=== PATIENT | male | born 1960 | race Two or more races ===

== ENCOUNTER 2021-01-01 21:02 | Emergency (ER) | payer OTHER ==
[~2021-01-01] VITALS: Ht 175.3 cm; Wt 118.8 kg
[~2021-01-01 21:02] MED LIST: ASA-EC81 MG PO; HYZAAR 100-251 UDTAB; NORVASC5 MG; PLAVIX75 MG PO
[2021-01-01] MEDS ORDERED: AMIODARONE HCL100 MG PO (21:35)
[2021-01-01] MEDS ORDERED: LOSARTAN POTASS50 MG PO (21:35)
[2021-01-01] MEDS ORDERED: FUROSEMIDE20 MG PO (21:36)
== END 2021-01-02 01:06 | disposition home or self-care (01) ==
LOC: ER 21:02
DX: N20.0 Calculus of kidney (principal)

== ENCOUNTER → 2021-01-26 | Outpatient (CLI) | payer OTHER ==
[~2021-01-26] MED LIST changes: +AMIODARONE HCL100 MG PO; +CARVEDILOL6.25 MG; +ELIQUIS5 MG; +FUROSEMIDE20 MG PO; +LASIX20 MG PO; +LASIX40 MG; +LOSARTAN POTASS50 MG PO
== END | disposition home or self-care (01) ==
LOC: RAD 15:09
PROVIDERS: ATTEND Urology
DX: I11.9 Hypertensive heart disease without heart failure (principal)

== ENCOUNTER 2021-01-27 07:41 | Outpatient (CLI) | payer OTHER ==
[~2021-01-27 07:41] MED LIST changes: -CARVEDILOL6.25 MG; -ELIQUIS5 MG; -LASIX20 MG PO; -LASIX40 MG
== END 2021-01-27 07:49 | disposition home or self-care (01) ==
LOC: TOM 07:41
PROVIDERS: ATTEND Urology
DX: C64.1 Malignant neoplasm of right kidney, except renal pelvis (principal)

== ENCOUNTER 2021-02-08 08:45 | Inpatient (IN) | payer OTHER ==
[~2021-02-08] VITALS: Ht 172.7 cm; Wt 114.3 kg
== END 2021-02-17 08:12 | disposition home or self-care (01) | DRG 658 ==
LOC: SURG 02-15 05:20 → O/R 02-15 05:20 → SURH 02-15 07:00 → SURG 02-15 14:05
PROVIDERS: ADMIT Urology; ATTEND Urology
PROC: 0TB64ZZ Excision of Right Ureter, Percutaneous Endoscopic Approach (ICD-10-PCS; 2021-02-15)
PROC: 07TC4ZZ Resection of Pelvis Lymphatic, Percutaneous Endoscopic Approach (ICD-10-PCS; 2021-02-15)
PROC: 0TT04ZZ Resection of Right Kidney, Percutaneous Endoscopic Approach (ICD-10-PCS; principal; 2021-02-15 07:00)
DX: C64.1 Malignant neoplasm of right kidney, except renal pelvis (principal); N28.89 Other specified disorders of kidney and ureter

== ENCOUNTER 2021-03-30 02:50 | Emergency (ER) | payer OTHER ==
[~2021-03-30] VITALS: Ht 172.7 cm; Wt 113.4 kg
[2021-03-30] MEDS ORDERED: LASIX20 MG PO (03:22)
== END 2021-03-30 18:07 | disposition home or self-care (01) ==
LOC: ER 02:50 → CPU-OBS 02:57 → ER 18:07
DX: I48.20 Chronic atrial fibrillation, unspecified (principal)
CPT/HCPCS: 93005; 93306; G0379; G0378

== ENCOUNTER 2021-04-03 06:50 | Emergency (ER) | payer OTHER ==
[~2021-04-03] VITALS: Ht 175.3 cm; Wt 109.8 kg
[~2021-04-03 06:50] MED LIST changes: +LASIX20 MG PO
[2021-04-03] MEDS ORDERED: LASIX40 MG (07:01)
[2021-04-03] MEDS ORDERED: ELIQUIS5 MG (07:02)
[2021-04-03] MEDS ORDERED: CARVEDILOL6.25 MG (07:02)
[2021-04-03] MEDS ORDERED: AMIODARONE HCL100 MG PO (07:03)
== END 2021-04-04 12:28 | disposition home or self-care (01) ==
LOC: ER 06:50
DX: I50.9 Heart failure, unspecified (principal); I48.91 Unspecified atrial fibrillation

== ENCOUNTER 2021-05-11 03:35 | Emergency (ER) | payer OTHER ==
[~2021-05-11] VITALS: Ht 172.7 cm; Wt 110.7 kg
[~2021-05-11 03:35] MED LIST changes: +CARVEDILOL6.25 MG; +ELIQUIS5 MG; +LASIX40 MG
== END 2021-05-11 17:21 | disposition home or self-care (01) ==
LOC: ER 03:35 → CPU-OBS 03:36 → ER 03:36
DX: I11.0 Hypertensive heart disease with heart failure (principal); I24.9 Acute ischemic heart disease, unspecified; I50.21 Acute systolic (congestive) heart failure; I48.20 Chronic atrial fibrillation, unspecified; M54.5 Low back pain; B37.9 Candidiasis, unspecified; R07.89 Other chest pain; R10.13 Epigastric pain; N20.0 Calculus of kidney; N28.89 Other specified disorders of kidney and ureter; E66.8 Other obesity
CPT/HCPCS: 93005; 82805; 36600; G0378; G0379

== ENCOUNTER 2021-09-15 08:03 | Outpatient (CLI) | payer OTHER | END 2021-09-15 08:04 | disposition home or self-care (01) | LOC: NUCLEAR 08:03 | PROVIDERS: ATTEND Internal Medicine | DX: I50.22 Chronic systolic (congestive) heart failure (principal) ==

== ENCOUNTER 2021-09-22 08:32 | Outpatient (CLI) | payer OTHER | END 2021-09-22 10:20 | disposition home or self-care (01) | LOC: TOM 08:32 | PROVIDERS: ATTEND Urology | DX: C64.1 Malignant neoplasm of right kidney, except renal pelvis (principal) ==

== ENCOUNTER 2021-12-22 01:53 | Emergency (ER) | payer OTHER ==
[~2021-12-22] VITALS: Ht 175.3 cm; Wt 112.0 kg
[2021-12-22] MEDS ORDERED: LANOXIN125 MCG (02:08)
[2021-12-22] MEDS ORDERED: PEPCID40 MG PO (07:59)
[2021-12-22] MEDS ORDERED: LEVSIN/SL0.125 MG SL (07:59)
== END 2021-12-22 08:10 ==
LOC: ER 01:53
DX: R10.13 Epigastric pain (principal); I10 Essential (primary) hypertension; I20.9 Angina pectoris, unspecified; Z85.9 Personal history of malignant neoplasm, unspecified

== ENCOUNTER → 2022-02-08 | Outpatient (CLI) | payer OTHER ==
[~2022-02-08] MED LIST changes: +LANOXIN125 MCG; +LEVSIN/SL0.125 MG SL; +PEPCID40 MG PO
== END | disposition home or self-care (01) ==
LOC: NUCLEAR 07:45
DX: C64.1 Malignant neoplasm of right kidney, except renal pelvis (principal)
CPT/HCPCS: 78306; A9503

== ENCOUNTER 2022-02-13 07:26 | Outpatient (CLI) | payer OTHER | END 2022-02-13 07:32 | disposition home or self-care (01) | LOC: TOM 07:26 | PROVIDERS: ATTEND Internal Medicine Hematology & Oncology | DX: C64.1 Malignant neoplasm of right kidney, except renal pelvis (principal); J98.4 Other disorders of lung ==

== ENCOUNTER → 2022-04-06 | Outpatient (CLI) | payer OTHER | END | disposition home or self-care (01) | LOC: RAD 14:44 | PROVIDERS: ATTEND Urology | DX: C64.1 Malignant neoplasm of right kidney, except renal pelvis (principal) ==

== ENCOUNTER 2022-06-05 13:52 | Emergency (ER) | payer OTHER ==
[~2022-06-05] VITALS: Ht 175.3 cm; Wt 117.9 kg
== END 2022-06-05 17:59 | disposition home or self-care (01) ==
LOC: ER 13:52
DX: M54.50 Low back pain, unspecified (principal)

== ENCOUNTER 2023-05-10 09:10 | Outpatient (CLI) | payer OTHER | END 2023-05-10 09:16 | disposition home or self-care (01) | LOC: NUCLEAR 09:10 | PROVIDERS: ATTEND Internal Medicine | DX: I87.2 Venous insufficiency (chronic) (peripheral) (principal) ==

== ENCOUNTER 2023-07-12 03:00 | Emergency (ER) | payer OTHER ==
[~2023-07-12] VITALS: Ht 175.3 cm; Wt 113.4 kg
[2023-07-12 04:04] LABS: HEMATOCRIT 38.4 % (39.0-48.0); HEMOGLOBIN 12.4 g/dL (13-16.00); MEAN CELL VOLUME 81.4 fL (80.0-100.00); MEAN CORPUSCULAR HEMOGLOBIN 26.3 pg (27.00-32.0); MEAN CORPUSCULAR HGB CONC 32.3 g/dl (32.0-36.0); PLATELET COUNT 241 K/uL (150-450); RED BLOOD COUNT 4.72 M/uL (4.00-6.00); RED CELL DISTRIBUTION WIDTH 16.9 % (11.5-14.5)
[2023-07-12 04:34] LABS: ALBUMIN 3.6 gm/dL (3.4-5.0); BILIRUBIN TOTAL 1.61 mg/dL (0.3-1.2); CREATININE SERUM 1.74 mg/dL (0.70-1.30); DIGOXIN 0.9 ng/ml (0.8-2.0); GFR 39.83; GLOBULINA 3.6 G/DL (2.4-3.5); POTASSIUM 4.49 mEq/L (3.5-5.1); TOTAL PROTEIN 7.2 gm/dL (6.4-8.2)
[2023-07-12 04:38] LABS: ABG PH 7.456 (7.35-7.45); ABG PO2 72.9 mmHg (80-100); ABG pCO2 35.6 mmHg (35-45)
[2023-07-12 04:39] LABS: BASE EXCESS 1.1 mmol/l; BICARBONATE 24.5 mmol/l (23-25); SaO2 95.3 %; Tco2 25.6 mmol/l; o2 21 %
[2023-07-12 04:40] LABS: allen test SATISFACTORY; puncture site RADIAL RIGHT
[2023-07-12 04:43] LABS: INR 1.18; PARTIAL THROMBOPLASTIN TIME 26.1 SECONDS (22.0-34.0); PROTHROMBIN TIME 12.2 SECONDS (9.0-11.5)
== END 2023-07-12 14:07 | disposition home or self-care (01) ==
LOC: ER 03:00
PROVIDERS: General Practice
DX: R06.02 Shortness of breath (principal); I11.9 Hypertensive heart disease without heart failure; I10 Essential (primary) hypertension; Z95.810 Presence of automatic (implantable) cardiac defibrillator; I48.91 Unspecified atrial fibrillation; I13.0 Hypertensive heart and chronic kidney disease with heart failure and stage 1 through stage 4 chronic kidney disease, or unspecified chronic kidney disease; I50.21 Acute systolic (congestive) heart failure; N18.9 Chronic kidney disease, unspecified; Z20.822 Contact with and (suspected) exposure to COVID-19

== ENCOUNTER 2023-08-09 02:11 | Emergency (ER) | payer OTHER ==
[~2023-08-09] VITALS: Ht 175.3 cm; Wt 111.1 kg
[2023-08-09 03:37] LABS: HEMATOCRIT 38.2 % (39.0-48.0); HEMOGLOBIN 12.5 g/dL (13-16.00); MEAN CELL VOLUME 81.4 fL (80.0-100.00); MEAN CORPUSCULAR HEMOGLOBIN 26.6 pg (27.00-32.0); MEAN CORPUSCULAR HGB CONC 32.6 g/dl (32.0-36.0); PLATELET COUNT 198 K/uL (150-450); RED BLOOD COUNT 4.69 M/uL (4.00-6.00); RED CELL DISTRIBUTION WIDTH 15.9 % (11.5-14.5)
[2023-08-09 04:11] LABS: ALBUMIN 3.5 gm/dL (3.4-5.0); BILIRUBIN TOTAL 1.95 mg/dL (0.3-1.2); CALCIUM 8.7 mg/dL (8.5-10.1); CREATININE SERUM 1.5 mg/dL (0.70-1.30); GFR 47.27; GLOBULINA 3.2 G/DL (2.4-3.5); POTASSIUM 3.91 mEq/L (3.5-5.1); TOTAL PROTEIN 6.7 gm/dL (6.4-8.2)
[2023-08-09 04:31] LABS: PH,URINE 5.5 (5.0-8.0); URINE APPEARANCE Clear; URINE BILIRRUBIN Negative (NEGATIVE); URINE BLOOD Negative; URINE COLOR Yellow; URINE GLUCOSE Negative (NEGATIVE); URINE LEUKOCYTE Negative; URINE NITRATE Negative; URINE PROTEIN Negative (NEGATIVE)
[2023-08-09 04:53] LABS: URINE BACTERIA 2.5 uL (0.0-1933); URINE EPITHELIAL CELLS 0.6 uL (0.0-38.8); URINE RBC 0.4 uL (0.0-20.8); URINE WBC 0.6 uL (0.0-23.2)
[2023-08-09] MEDS ORDERED: PHAZYME500 MG PO (07:12)
[2023-08-09] MEDS ORDERED: PROTONIX40 MG PO (07:12)
== END 2023-08-09 07:44 | disposition home or self-care (01) ==
LOC: ER 02:11
PROVIDERS: General Practice
DX: R10.13 Epigastric pain (principal); I10 Essential (primary) hypertension; Z86.79 Personal history of other diseases of the circulatory system

== ENCOUNTER 2023-08-14 08:40 | Outpatient (CLI) | payer OTHER ==
[~2023-08-14 08:40] MED LIST changes: +PHAZYME500 MG PO; +PROTONIX40 MG PO
== END 2023-08-14 08:44 | disposition home or self-care (01) ==
LOC: SONOGRAMA 08:40
PROVIDERS: ATTEND General Practice
DX: R10.13 Epigastric pain (principal)

== ENCOUNTER 2023-09-05 11:59 | Emergency (ER) | payer OTHER ==
[~2023-09-05] VITALS: Ht 175.3 cm; Wt 112.9 kg
[2023-09-05 14:35] LABS: HEMATOCRIT 39.1 % (39.0-48.0); HEMOGLOBIN 12.4 g/dL (13-16.00); MEAN CELL VOLUME 81.1 fL (80.0-100.00); MEAN CORPUSCULAR HEMOGLOBIN 25.8 pg (27.00-32.0); MEAN CORPUSCULAR HGB CONC 31.8 g/dl (32.0-36.0); PLATELET COUNT 234 K/uL (150-450); RED BLOOD COUNT 4.82 M/uL (4.00-6.00); RED CELL DISTRIBUTION WIDTH 16.8 % (11.5-14.5)
[2023-09-05 15:04] LABS: INR 1.43; PROTHROMBIN TIME 14.6 SECONDS (9.0-11.5)
[2023-09-05 15:21] LABS: CALCIUM 9.1 mg/dL (8.5-10.1); CHOL HDL RATIO 6.4 (0-5.0); CREATININE SERUM 1.78 mg/dL (0.70-1.30); GFR 38.8; POTASSIUM 4.34 mEq/L (3.5-5.1)
[2023-09-05 23:35] LABS: ABG PH 7.436 (7.35-7.45); ABG PO2 68.1 mmHg (80-100); ABG pCO2 39.8 mmHg (35-45); BASE EXCESS 1.9 mmol/l; BICARBONATE 26.2 mmol/l (23-25); SaO2 94.1 %; Tco2 27.4 mmol/l
[2023-09-05 23:36] LABS: o2 21 %
[2023-09-05 23:37] LABS: allen test SATISFACTORY; puncture site RADIAL RIGHT
== END 2023-09-05 19:58 | disposition home or self-care (01) ==
LOC: ER 11:59
PROVIDERS: Emergency Medicine
DX: I50.9 Heart failure, unspecified (principal)

== ENCOUNTER 2023-11-23 08:00 | Outpatient (CLI) | payer OTHER ==
[2023-11-23 08:44] LABS: URINE APPEARANCE Clear; URINE BILIRRUBIN Negative (NEGATIVE); URINE BLOOD Negative; URINE COLOR Yellow; URINE GLUCOSE Negative (NEGATIVE); URINE LEUKOCYTE Trace; URINE NITRATE Negative; URINE PROTEIN 30 (NEGATIVE)
[2023-11-23 08:48] LABS: URINE BACTERIA 31.4 uL (0.0-1933); URINE EPITHELIAL CELLS 3.6 uL (0.0-38.8); URINE RBC 4.1 uL (0.0-20.8); URINE WBC 3.5 uL (0.0-23.2)
[2023-11-23 08:56] LABS: HEMATOCRIT 35.5 % (39.0-48.0); HEMOGLOBIN 11.4 g/dL (13-16.00); MEAN CELL VOLUME 77.9 fL (80.0-100.00); MEAN CORPUSCULAR HEMOGLOBIN 25.1 pg (27.00-32.0); MEAN CORPUSCULAR HGB CONC 32.3 g/dl (32.0-36.0); PLATELET COUNT 209 K/uL (150-450); RED BLOOD COUNT 4.56 M/uL (4.00-6.00); RED CELL DISTRIBUTION WIDTH 17.2 % (11.5-14.5)
[2023-11-23 09:09] LABS: INR 1.2; PARTIAL THROMBOPLASTIN TIME 28.2 SECONDS (22.0-34.0); PROTHROMBIN TIME 12.4 SECONDS (9.0-11.5)
[2023-11-23 09:27] LABS: ALBUMIN 3.6 gm/dL (3.4-5.0); BILIRUBIN TOTAL 1.94 mg/dL (0.3-1.2); CALCIUM 9.3 mg/dL (8.5-10.1); CREATININE SERUM 1.75 mg/dL (0.70-1.30); GFR 39.56; GLOBULINA 3.4 G/DL (2.4-3.5)
== END 2023-11-23 08:02 | disposition home or self-care (01) ==
LOC: LAB 08:00
PROVIDERS: ATTEND Surgery
DX: K80.00 Calculus of gallbladder with acute cholecystitis without obstruction (principal)

== ENCOUNTER 2023-12-07 21:51 | Emergency (ER) | payer OTHER ==
[~2023-12-07] VITALS: Ht 175.3 cm; Wt 108.9 kg
[~2023-12-07 21:51] MED LIST changes: +CELECOXIB200 MG PO; +TRAM1TAB98 PO
== END 2023-12-08 02:13 | disposition home or self-care (01) ==
LOC: ER
DX: T81.89XA Other complications of procedures, not elsewhere classified, initial encounter (principal); Z91.040 Latex allergy status

== ENCOUNTER 2024-01-23 03:38 | Emergency (ER) | payer OTHER ==
[~2024-01-23] VITALS: Ht 175.3 cm; Wt 108.9 kg
[~2024-01-23 03:38] MED LIST changes: +AMIODARONE HCL100 MG; +CARVEDILOL12.5 MG; +ELIQUIS2.5 MG PO; +LASIX20 MG
[2024-01-23] MEDS ORDERED: FUROsemide 40 MG/4 ML VIAL IV STA (04:29)
[2024-01-23] MEDS ORDERED: FUROsemide 40 MG/4 ML VIAL ONE (04:56)
[2024-01-23 05:18] LABS: HEMATOCRIT 34.4 % (39.0-48.0); HEMOGLOBIN 11.1 g/dL (13-16.00); MEAN CELL VOLUME 73.4 fL (80.0-100.00); MEAN CORPUSCULAR HEMOGLOBIN 23.7 pg (27.00-32.0); MEAN CORPUSCULAR HGB CONC 32.2 g/dl (32.0-36.0); PLATELET COUNT 352 K/uL (150-450); RED BLOOD COUNT 4.69 M/uL (4.00-6.00); RED CELL DISTRIBUTION WIDTH 19.7 % (11.5-14.5)
[2024-01-23 05:28] LABS: INR 1.35; PARTIAL THROMBOPLASTIN TIME 29.4 SECONDS (22.0-34.0); PROTHROMBIN TIME 13.9 SECONDS (9.0-11.5)
[2024-01-23 05:33] LABS: ALBUMIN 3.2 gm/dL (3.4-5.0); BILIRUBIN TOTAL 1.37 mg/dL (0.3-1.2); CALCIUM 8.9 mg/dL (8.5-10.1); CREATININE SERUM 2.22 mg/dL (0.70-1.30); GFR 30.07; GLOBULINA 3.7 G/DL (2.4-3.5); POTASSIUM 4.81 mEq/L (3.5-5.1); TOTAL PROTEIN 6.9 gm/dL (6.4-8.2)
[2024-01-23] MEDS ORDERED: FAMOTIDINE/PF 20 MG/2 ML VIAL IV PUSH STA (05:43)
[2024-01-23] MEDS ORDERED: FAMOTIDINE/PF 20 MG/2 ML VIAL ONE (05:45)
[2024-01-23 06:10] LABS: ABG PH 7.448 (7.35-7.45); ABG PO2 81.8 mmHg (80-100); ABG pCO2 30.1 mmHg (35-45); BASE EXCESS -2.4 mmol/l; BICARBONATE 20.4 mmol/l (23-25); SaO2 96.4 %; Tco2 21.3 mmol/l
[2024-01-23] MEDS ORDERED: ONDANSETRON HCL 2 MG/ML VIAL IV STA (06:45)
[2024-01-23] MEDS ORDERED: ONDANSETRON HCL 2 MG/ML VIAL ONE (06:46)
[2024-01-23 07:07] LABS: allen test SATISFACTORY; o2 21 %; puncture site RADIAL RIGHT
[2024-01-23] MEDS ORDERED: AMIODARONE HCL 50 MG/ML AMPUL IV STA (07:29)
[2024-01-23] MEDS ORDERED: AMIODARONE HCL 50 MG/ML AMPUL IV ONE (07:37)
[2024-02-07] MEDS ORDERED: PROTEINEX LIQU473 ML (14:05)
[2024-02-10] MEDS ORDERED: AMIODARONE HCL200 MG PO (10:55)
[2024-02-10] MEDS ORDERED: ELIQUIS5 MG PO (10:55)
[2024-02-10] MEDS ORDERED: CARVEDILOL6.25 MG PO (10:57)
[2024-02-10] MEDS ORDERED: SPIRONOLACTONE25 MG PO (10:58)
[2024-02-10] MEDS ORDERED: VITAMIN D3125 MC2 PO (10:59)
[2024-02-10] MEDS ORDERED: LASIX40 MG PO (10:59)
[2024-02-10] MEDS ORDERED: PANTOPRAZOLE SO40 MG PO (10:59)
[2024-02-10] MEDS ORDERED: Neurin-Sl Tablet Sl SL (10:59)
[2024-02-10] MEDS ORDERED: PROTEINEX LIQU473 ML PO (11:00)
[2024-02-10] MEDS ORDERED: FARXIGA 5 MG PO (11:00)
== END 2024-01-23 22:12 | disposition home or self-care (01) ==
LOC: ER 03:39
PROVIDERS: General Practice
DX: R06.02 Shortness of breath (principal); R60.0 Localized edema; I25.10 Atherosclerotic heart disease of native coronary artery without angina pectoris; I50.9 Heart failure, unspecified; E11.9 Type 2 diabetes mellitus without complications; K21.9 Gastro-esophageal reflux disease without esophagitis; I10 Essential (primary) hypertension; Z91.040 Latex allergy status

== ENCOUNTER 2024-02-12 23:42 | Inpatient (IN) | payer OTHER ==
[~2024-02-12] VITALS: Ht 175.3 cm; Wt 110.7 kg
[~2024-02-12 23:42] MED LIST changes: +AMIODARONE HCL200 MG PO; -CARVEDILOL12.5 MG; +CARVEDILOL6.25 MG PO; -ELIQUIS2.5 MG PO; +ELIQUIS5 MG PO; +FARXIGA 5 MG PO; -LASIX20 MG; +LASIX40 MG PO; +Neurin-Sl Tablet Sl SL; +PANTOPRAZOLE SO40 MG PO; +PROTEINEX LIQU473 ML; +PROTEINEX LIQU473 ML PO; +SPIRONOLACTONE25 MG PO; +VITAMIN D3125 MC2 PO
[2024-02-13] MEDS ORDERED: FUROsemide 40 MG/4 ML VIAL IV STA (00:28)
[2024-02-13] MEDS ORDERED: NITROGLYCERIN IN 5 % DEXTROSE 250 ML IV SCH ×3 (00:30→08:15)
[2024-02-13] MEDS ORDERED: NITROGLYCERIN IN 5 % DEXTROSE 50 MG/250 ML BOTTLE IV ONE (00:35)
[2024-02-13] MEDS ORDERED: FUROsemide 40 MG/4 ML VIAL ONE ×3 (00:35→23:34)
[2024-02-13 00:58] LABS: HEMATOCRIT 36.6 % (39.0-48.0); HEMOGLOBIN 11.5 g/dL (13-16.00); MEAN CELL VOLUME 75.4 fL (80.0-100.00); MEAN CORPUSCULAR HEMOGLOBIN 23.8 pg (27.00-32.0); MEAN CORPUSCULAR HGB CONC 31.5 g/dl (32.0-36.0); PLATELET COUNT 281 K/uL (150-450); RED BLOOD COUNT 4.86 M/uL (4.00-6.00); RED CELL DISTRIBUTION WIDTH 21.1 % (11.5-14.5)
[2024-02-13 01:15] LABS: INR 1.53; PARTIAL THROMBOPLASTIN TIME 29.5 SECONDS (22.0-34.0)
[2024-02-13 01:18] LABS: PROTHROMBIN TIME 15.6 SECONDS (9.0-11.5)
[2024-02-13 02:06] LABS: ALBUMIN 3.3 gm/dL (3.4-5.0); BILIRUBIN TOTAL 3.3 mg/dL (0.3-1.2); CALCIUM 9.4 mg/dL (8.5-10.1); CREATININE SERUM 2.44 mg/dL (0.70-1.30); GFR 26.96; GLOBULINA 3.7 G/DL (2.4-3.5); POTASSIUM 5.39 mEq/L (3.5-5.1)
[2024-02-13 02:57] LABS: ABG PH 7.481 (7.35-7.45)
[2024-02-13 02:58] LABS: ABG PO2 111.5 mmHg (80-100); ABG pCO2 31.8 mmHg (35-45); BASE EXCESS 0.6 mmol/l; BICARBONATE 23.2 mmol/l (23-25); SaO2 98.7 %; Tco2 24.2 mmol/l; allen test SATISFACTORY; o2 21 %; puncture site RADIAL RIGHT
[2024-02-13] MEDS ORDERED: AMIODARONE HCL 50 MG/ML AMPUL IV STA ×2 (03:17→07:23)
[2024-02-13] MEDS ORDERED: AMIODARONE HCL 50 MG/ML AMPUL IV ONE ×2 (03:22→07:20)
[2024-02-13] MEDS ORDERED: FUROSEMIDE 80 MG IV SCH (08:15)
[2024-02-13] MEDS ORDERED: SODIUM CHLORIDE 0.9% IV SCH (08:15)
[2024-02-13 08:30] LABS: ABG PH 7.497 (7.35-7.45); ABG PO2 80.7 mmHg (80-100); ABG pCO2 25.8 mmHg (35-45); BICARBONATE 19.5 mmol/l (23-25); SaO2 96.8 %; Tco2 20.3 mmol/l
[2024-02-13] MEDS ORDERED: LYSIPLEX PLUS1 EACH (08:49)
[2024-02-13] MEDS ORDERED: SUCRALFATE1 GM (08:49)
[2024-02-13] MEDS ORDERED: FARXIGA5 MG (08:54)
[2024-02-13] MEDS ORDERED: CEFEPIME HCL 1,000 MG VIAL IV SCH (09:00)
[2024-02-13] MEDS ORDERED: ENOXAPARIN SODIUM 30 MG/0.3 ML SYRINGE SUBCUTANEO SCH (09:00)
[2024-02-13] MEDS ORDERED: PANTOPRAZOLE SODIUM 40 MG/VIAL VIAL IV PUSH SCH (09:00)
[2024-02-13] MEDS ORDERED: Cyanocobalamin/Mecobalamin 1 TAB.SL SL SCH (09:00)
[2024-02-13] MEDS ORDERED: METOPROLOL SUCCINATE 25 MG TAB.SR.24H PO SCH (09:00)
[2024-02-13] MEDS ORDERED: APIXABAN 5 MG TABLET PO SCH (09:00)
[2024-02-13 09:22] LABS: HEMATOCRIT 35.3 % (39.0-48.0); HEMOGLOBIN 11.3 g/dL (13-16.00); MEAN CELL VOLUME 74.9 fL (80.0-100.00); PLATELET COUNT 268 K/uL (150-450); RED BLOOD COUNT 4.71 M/uL (4.00-6.00)
[2024-02-13 09:32] LABS: CREATININE SERUM 2.43 mg/dL (0.70-1.30)
[2024-02-13 10:20] LABS: INR 1.53; PARTIAL THROMBOPLASTIN TIME 28.6 SECONDS (22.0-34.0)
[2024-02-13 10:26] LABS: PROTHROMBIN TIME 15.6 SECONDS (9.0-11.5)
[2024-02-13 10:38] LABS: CKMB 1.2 NG/ML (0.5-3.6); POTASSIUM 4.59 mEq/L (3.5-5.1)
[2024-02-13 10:40] LABS: DIGOXIN 0.1 ng/ml (0.8-2.0)
[2024-02-13 11:16] LABS: ABG PH 7.426 (7.35-7.45); ABG pCO2 29.3 mmHg (35-45); BASE EXCESS -4.1 mmol/l; BICARBONATE 18.8 mmol/l (23-25); SaO2 84.8 %; Tco2 19.7 mmol/l
[2024-02-13 11:46] LABS: allen test SATISFACTORY; puncture site RADIAL RIGHT
[2024-02-13 11:49] LABS: allen test SATISFACTORY; o2 32 %; puncture site RADIAL LEFT
[2024-02-13 11:50] LABS: o2 21 %
[2024-02-13 11:51] LABS: ABG PO2 48.9 mmHg (80-100)
[2024-02-13 13:29] LABS: URINE APPEARANCE Cloudy; URINE BILIRRUBIN Small (NEGATIVE); URINE BLOOD Large; URINE COLOR Dark Yellow; URINE LEUKOCYTE Small; URINE NITRATE Negative
[2024-02-13 13:30] LABS: URINE BACTERIA 590.9 uL (0.0-1933); URINE EPITHELIAL CELLS 19.1 uL (0.0-38.8); URINE RBC 695.9 uL (0.0-20.8); URINE WBC 27.6 uL (0.0-23.2)
[2024-02-13 13:39] LABS: URINE CRYSTALS MANY /HPF; URINE GLUCOSE 100 MG/DL (NEGATIVE); URINE PROTEIN 100 (NEGATIVE)
[2024-02-13] MEDS ORDERED: AMIODARONE IN DEXTROSE,ISO-OSM 360 MG/200 ML IV.SOLN IV ONE (16:58)
[2024-02-13] MEDS ORDERED: FUROsemide 20 MG/2 ML VIAL ONE (23:33)
[2024-02-14] MEDS ORDERED: EMPAGLIFLOZIN 10 MG TABLET PO SCH ×2 (09:00)
[2024-02-14] MEDS ORDERED: DoBUTamine HCL IN DEXTROSE 5 % 250 ML IV SCH (20:30)
[2024-02-15] MEDS ORDERED: AMIODARONE HCL 200 MG TABLET PO SCH (09:00)
[2024-02-15] MEDS ORDERED: MAGNESIUM HYDROXIDE 30 ML BLIST.PACK PO NR (11:30)
[2024-02-15] MEDS ORDERED: MINERAL OIL 30 ML BLIST.PACK PO NR (11:30)
[2024-02-15] MEDS ORDERED: LACTULOSE 20 G/30 ML BLIST.PACK PO NR (11:30)
[2024-02-15 12:13] LABS: CREATININE SERUM 2.27 mg/dL (0.70-1.30); POTASSIUM 3.08 mEq/L (3.5-5.1)
[2024-02-16] MEDS ORDERED: POLYETHYLENE GLYCOL 3350 17 GM BLIST.PACK PO ONE (16:15)
[2024-02-16] MEDS ORDERED: DOCUSATE SODIUM 100MG CAP PO SCH (21:00)
[2024-02-16] MEDS ORDERED: CLONAZEPAM 0.5 MG TABLET PO SCH (21:00)
[2024-02-17 07:45] LABS: HEMATOCRIT 33.1 % (39.0-48.0); HEMOGLOBIN 10.8 g/dL (13-16.00); MEAN CELL VOLUME 75.5 fL (80.0-100.00); MEAN CORPUSCULAR HEMOGLOBIN 24.5 pg (27.00-32.0); MEAN CORPUSCULAR HGB CONC 32.5 g/dl (32.0-36.0); PLATELET COUNT 208 K/uL (150-450); RED BLOOD COUNT 4.39 M/uL (4.00-6.00); RED CELL DISTRIBUTION WIDTH 22.1 % (11.5-14.5)
[2024-02-17 07:56] LABS: ALBUMIN 2.8 gm/dL (3.4-5.0); CALCIUM 8.2 mg/dL (8.5-10.1); CREATININE SERUM 1.51 mg/dL (0.70-1.30); GFR 46.91; MAGNESIUM 2.3 mg/dL (1.8-2.4); PHOSPHOROUS 2.2 mg/dL (2.5-4.9)
[2024-02-17 08:14] LABS: POTASSIUM 2.96 mEq/L (3.5-5.1)
[2024-02-17] MEDS ORDERED: POTASSIUM CHLORIDE IN WATER 40 MEQ/100 ML PIGGYBAG IV SCH (13:00)
[2024-02-17] MEDS ORDERED: FUROsemide 20 MG/2 ML VIAL IV SCH (13:00)
[2024-02-17 15:29] LABS: ABG PH 7.502 (7.35-7.45); ABG pCO2 51.9 mmHg (35-45)
[2024-02-17 15:30] LABS: ABG PO2 93.6 mmHg (80-100); BASE EXCESS 14.2 mmol/l; BICARBONATE 39.7 mmol/l (23-25); SaO2 98.2 %; Tco2 41.3 mmol/l
[2024-02-17 15:32] LABS: allen test SATISFACTORY; o2 28 %; puncture site RADIAL RIGHT
[2024-02-17] MEDS ORDERED: ACETAZOLAMIDE 250 MG TABLET PO SCH (17:00)
[2024-02-18] MEDS ORDERED: FUROsemide 40 MG TABLET PO SCH (09:12)
[2024-02-18] MEDS ORDERED: SPIRONOLACTONE 25 MG TABLET PO SCH (09:20)
[2024-02-18 09:39] LABS: CREATININE SERUM 1.62 mg/dL (0.70-1.30); GFR 43.25; POTASSIUM 4.08 mEq/L (3.5-5.1)
[2024-02-19] MEDS ORDERED: ELIQUIS5 MG PO (11:00)
[2024-02-19] MEDS ORDERED: AMIODARONE HCL200 MG PO (11:00)
[2024-02-19] MEDS ORDERED: CARVEDILOL6.25 MG PO (11:00)
[2024-02-19] MEDS ORDERED: FUROSEMIDE40 MG PO (11:01)
[2024-02-19] MEDS ORDERED: CLONAZEPAM0.5 MG PO (11:01)
[2024-02-19] MEDS ORDERED: SPIRONOLACTONE25 MG PO (11:01)
[2024-02-19] MEDS ORDERED: FARXIGA5 MG PO (11:02)
[2024-02-19] MEDS ORDERED: PANTOPRAZOLE SO40 MG PO (11:02)
[2024-02-19] MEDS ORDERED: LYSIPLEX PLUS1 EACH PO (11:02)
[2024-02-19] MEDS ORDERED: VITAMIN D3125 MC2 PO (11:02)
[2024-02-19] MEDS ORDERED: PROTEINEX LIQU473 ML PO (11:03)
[2024-02-19] MEDS ORDERED: Neurin-Sl Tablet Sl SL ×2 (11:03)
== END 2024-02-19 14:49 | disposition home or self-care (01) | DRG 292 ==
LOC: ER 23:43 → SEC-K 02-13 08:17 → ICU-2 02-13 08:17 → ICU 02-14 01:17 → MEDJ 02-17 20:30
PROVIDERS: General Practice; Internal Medicine; ADMIT Internal Medicine; ATTEND Internal Medicine
PROC: B24BZZZ Ultrasonography of Heart with Aorta (ICD-10-PCS; principal; 2024-02-13)
PROC: 4A12X4Z Monitoring of Cardiac Electrical Activity, External Approach (ICD-10-PCS; 2024-02-18)
DX: I11.0 Hypertensive heart disease with heart failure (principal); I48.20 Chronic atrial fibrillation, unspecified; I50.20 Unspecified systolic (congestive) heart failure; I34.0 Nonrheumatic mitral (valve) insufficiency; E87.6 Hypokalemia; I25.10 Atherosclerotic heart disease of native coronary artery without angina pectoris; E78.5 Hyperlipidemia, unspecified; G47.33 Obstructive sleep apnea (adult) (pediatric)

== ENCOUNTER 2024-02-25 22:40 | Emergency (ER) | payer OTHER ==
[~2024-02-25] VITALS: Ht 175.3 cm; Wt 100.7 kg
[~2024-02-25 22:40] MED LIST changes: +CARVEDILOL12.5 MG; +CLONAZEPAM0.5 MG PO; +ELIQUIS2.5 MG PO; +FARXIGA5 MG; +FARXIGA5 MG PO; +FUROSEMIDE40 MG PO; +LASIX20 MG; +LYSIPLEX PLUS1 EACH; +LYSIPLEX PLUS1 EACH PO; +SUCRALFATE1 GM
[2024-02-25] MEDS ORDERED: FUROsemide 20 MG/2 ML VIAL IV ONE (23:30)
[2024-02-26 00:13] LABS: HEMATOCRIT 33.3 % (39.0-48.0); HEMOGLOBIN 10.8 g/dL (13-16.00); MEAN CELL VOLUME 75.8 fL (80.0-100.00); MEAN CORPUSCULAR HEMOGLOBIN 24.6 pg (27.00-32.0); MEAN CORPUSCULAR HGB CONC 32.4 g/dl (32.0-36.0); PLATELET COUNT 371 K/uL (150-450); RED BLOOD COUNT 4.39 M/uL (4.00-6.00); RED CELL DISTRIBUTION WIDTH 22.7 % (11.5-14.5)
[2024-02-26 01:02] LABS: CALCIUM 8.9 mg/dL (8.5-10.1); CREATININE SERUM 1.68 mg/dL (0.70-1.30); GFR 41.47; POTASSIUM 5.49 mEq/L (3.5-5.1)
[2024-02-26 01:34] LABS: URINE APPEARANCE Clear; URINE BILIRRUBIN Negative (NEGATIVE); URINE BLOOD Negative; URINE COLOR Dark Yellow; URINE LEUKOCYTE Negative; URINE NITRATE Negative; URINE PROTEIN 30 (NEGATIVE)
[2024-02-26 01:38] LABS: URINE BACTERIA 17.6 uL (0.0-1933); URINE EPITHELIAL CELLS 2.7 uL (0.0-38.8); URINE RBC 7.6 uL (0.0-20.8)
[2024-02-26 01:40] LABS: URINE GLUCOSE 250 MG/DL (NEGATIVE)
[2024-02-26] MEDS ORDERED: LEVALBUTER0.63 MG/3 IH (03:39)
[2024-02-26 04:24] LABS: ABG PH 7.454 (7.35-7.45); ABG PO2 85.8 mmHg (80-100); ABG pCO2 38.6 mmHg (35-45)
[2024-02-26 04:25] LABS: BASE EXCESS 2.5 mmol/l; BICARBONATE 26.5 mmol/l (23-25); SaO2 97.1 %; Tco2 27.6 mmol/l; allen test SATISFACTORY; o2 21 %; puncture site RADIAL RIGHT
== END 2024-02-26 04:22 ==
LOC: ER 22:41
PROVIDERS: Emergency Medicine
DX: R06.02 Shortness of breath (principal); I10 Essential (primary) hypertension; I50.9 Heart failure, unspecified; Z91.040 Latex allergy status

== ENCOUNTER 2024-02-27 23:57 | Inpatient (IN) | payer OTHER ==
[~2024-02-27] VITALS: Ht 297.2 cm; Wt 100.2 kg
[~2024-02-27 23:57] MED LIST changes: +LEVALBUTER0.63 MG/3 IH
--- NOTE | 2024-02-28 00:24 | NUR ---
SE RECIBE PTE ALERTA Y ORIENTADO X3 EL MISMO REFIERE QUE PRESENTA DOLOR ABDOMINAL DESDE MUKESH Y NAUSEAS EN EL KATHERIN DE HOY. PACIENTE FUE OPERADO DE LA VESICULA EN IRMA POR DRA LUCY FINK.
[2024-02-28] MEDS ORDERED: METOCLOPRAMIDE HCL 5 MG/ML VIAL IM STA (00:38)
[2024-02-28] MEDS ORDERED: FAMOtidine 10 MG/ML (4ML VIAL) IV PUSH STA (00:39)
[2024-02-28] MEDS ORDERED: HYOSCYAMINE SULFATE 0.125 MG TAB.SUBL SL ONE (00:45)
--- NOTE | 2024-02-28 00:57 | NUR ---
PACIENTE EVALUADO POR QUIEN [place] [facility], SE EDUCA ACERCA DEL MISMO Y REFIERE ENTENDER. SE CANALIZA Y COLECTAN MUESTRAS DE LABORATORIO MEDIANTE MEDIDAS ASEPTICAS. SE ADMINISTRAN MEDICAMENTOS ABHILASH ORDEN MEDICA.
[2024-02-28 01:03] LABS: HEMATOCRIT 35.3 % (39.0-48.0); HEMOGLOBIN 11.1 g/dL (13-16.00); MEAN CELL VOLUME 75.2 fL (80.0-100.00); MEAN CORPUSCULAR HEMOGLOBIN 23.7 pg (27.00-32.0); MEAN CORPUSCULAR HGB CONC 31.5 g/dl (32.0-36.0); PLATELET COUNT 381 K/uL (150-450); RED CELL DISTRIBUTION WIDTH 23.9 % (11.5-14.5)
[2024-02-28 01:49] LABS: CALCIUM 9.2 mg/dL (8.5-10.1); CREATININE SERUM 2.28 mg/dL (0.70-1.30); GFR 29.15; POTASSIUM 5.39 mEq/L (3.5-5.1)
[2024-02-28] MEDS ORDERED: RINGERS SOLUTION,LACTATED 500 ML IV STA (02:58)
[2024-02-28] MEDS ORDERED: DILTIAZEM HCL 25 MG/5 ML VIAL IV ONE (03:15)
[2024-02-28] MEDS ORDERED: DILTIAZEM HCL 125MG/25ML VIAL IV STA (03:22)
[2024-02-28] MEDS ORDERED: FUROsemide 20 MG/2 ML VIAL IV STA (03:23)
--- NOTE | 2024-02-28 03:34 | NUR ---
2:40AM:SE ENCUENTRA PACIENTE CON DIFICULTAD PARA RESPIRAR SE DOMINIK S/V HR:140 Y SPO2 91% SE COLOCA CANULA NASAL A 3L/MIN Y SE BERT EKG Y SE PRESENTA A DR. IGLESIAS. SE PASA PACIENTE A UNIDAD DE CHEST PAIN CAMA # 16 SE CONECTA A MONITOR CARDIACO Y OXIMETRIA DE PULSO. SE ADMINITRA 25 MG DE CARDIZEM IV. LUEGO DR. IGLESIAS ORDENA COLOCA DRIP DE CARDIZEM 125MG/125ML @ 10 ML/HR. SE CANALIZA EN MANO DERECHA # 18 Y SE DOMINIK MUESTRAS DE LABORATORIO. SE NOTIFIAN ABGS A MR. BETANCOURT Y SE NOTIFICA PLACA PORTABLE A PERSONAL DE RADIOLOGIA.
[2024-02-28 03:53] LABS: ABG PH 7.441 (7.35-7.45); ABG PO2 58.7 mmHg (80-100); ABG pCO2 34.2 mmHg (35-45); BASE EXCESS -0.7 mmol/l; BICARBONATE 22.8 mmol/l (23-25); SaO2 91.1 %; Tco2 23.8 mmol/l; o2 21 %; puncture site RADIAL RIGHT
[2024-02-28 03:54] LABS: allen test SATISFACTORY
--- NOTE | 2024-02-28 04:38 | NUR ---
SE COLOCA [place]N UTILIZANDO TECNICAS ESTERILES SE OBSERVA 50 ML DE EGRESO URINARIO.
[2024-02-28] MEDS ORDERED: FUROsemide 20 MG/2 ML VIAL IV ONE (05:30)
[2024-02-28] MEDS ORDERED: LEVALBUTEROL HCL 1.25 MG/3 ML SOLUTION IH ONE (05:30)
--- NOTE | 2024-02-28 05:36 | NUR ---
SE NOTIFICAN TERDOTAS Y ADITI MASK A MR. BETANCOURT
[2024-02-28] MEDS ORDERED: DILTIAZEM HCL 125 MG in 0.9 % SODIUM CHLORIDE 125 ML IV SCH (05:45)
--- NOTE | 2024-02-28 07:56 | NUR ---
SE RECIBE PTE MASCULINO DE 63 ANOS EN UNIDAD DE "CHEST PAIN" CARDO DE DAVION CHAN. AL MOMENTO SE OBSERVA ALERTA Y ORIENTADO X3 EN COMPANIA DE FAMILIAR. PTE EN CAMAM BAJA Y BARANDAS ELEVADAS POR SEGURIDAD, RECIBIENDO ASISTENCIA RESPIRATORIA POR VENTURY MASK 35% BRANT PTE REFIERE NO TOLERAR. SE OBSERVAN EXTREMIDADES SUPERIORES LIBRES DE EDEMA Y ERITEMA CON CANALIZACIONES EN BRAZO DERECHO PATENTES POR LOS CUALES ESTAN RECIBIENDO DRIP DE CARDICEM @ 10ML/HR. SE OBSERVA PTE CONECTADO A MONITOR CARDIACO Y OXYMETRIA DE PULSO CON VITALES ESTABLES ABHILASH CONDICION. ABDMEN RETRAIBLE AL TACTO CON PERISTALSIS PRESENTE. PTE CON SONDA URINARIA CON ORINA RECOLECTADA AMARILLO INTENSO. EXTREMIDADES INFERIOIRES LIBRES DE EDEMA Y ERITEMA.
[2024-02-28] MEDS ORDERED: DILTIAZEM HCL 125 MG in 0.9 % SODIUM CHLORIDE 100 ML IV SCH (10:45)
--- NOTE | 2024-02-28 15:20 | NUR ---
SE RECIBE PACIENTE ALERTA Y ORIENTADO X3 ACOMPANADO DE ESPOSA, UBICADO EN CAMA #16 DEL AREA DE CHEST PAIN CON BARANNDAS ELEVADAS Y EN POSICION MAS BAJA POR ROSENBAUM SEGURIDAS. PACIENTE CONECTADO A N/C @ 4 LT/MIN, PACIENTE CANALIZADO EN BRAZO DERECHO CON #18 Y #20 PATENTE EDUARDO DE EDEMA Y ERITEMA. SE OBSERVAN EXTREMIDADES SUPERIORES EDUARDO DE EDEMA. PACIENTE CONECTADO A MONITOR CARDIACO Y OXIMETRIA DE PULSO. PACIENTE CON [place]N CATETER #16 BAJANDO A GRAVEDAD, SE
--- NOTE | 2024-02-28 15:24 | NUR ---
SE OBSERVAN ABDOMEN DISTENDIDO CON PERISTALSIS PRESENTE. PACIENTE CONSULTADO CON DR. JORDY MCCALL. SE MANTIENE PACIENTE EN OBSERVACION POR CAMBIOS SIGNIFICATIVOS.
--- NOTE | 2024-02-28 15:55 | NUR ---
DR. DAVE SMITH PASA POR AREA DE CHEST PAIN A EVALUAR PACIENTE.
[2024-02-28] MEDS ORDERED: CLONAZEPAM 0.5 MG TABLET PO PRN (17:45)
[2024-02-28] MEDS ORDERED: NITROGLYCERIN IN 5 % DEXTROSE 250 ML IV SCH (17:45)
[2024-02-28] MEDS ORDERED: DOBUTAMINE HCL IV SCH (17:45)
[2024-02-28] MEDS ORDERED: SODIUM CHLORIDE 0.9% IV SCH (17:45)
[2024-02-28] MEDS ORDERED: ONDANSETRON HCL 4 MG in 0.9 % SODIUM CHLORIDE 50 ML IV PRN (17:45)
[2024-02-28] MEDS ORDERED: ACETAMINOPHEN 500 MG GEL..CAP PO PRN (17:45)
[2024-02-28] MEDS ORDERED: DoBUTamine HCL IN DEXTROSE 5 % 250 ML IV SCH (18:15)
[2024-02-28] MEDS ORDERED: FAMOTIDINE/PF 20 MG in 0.9 % SODIUM CHLORIDE 8 ML IV PUSH SCH (21:00)
[2024-02-28] MEDS ORDERED: FUROsemide 20 MG/2 ML VIAL IV SCH (21:00)
[2024-02-28] MEDS ORDERED: AMIODARONE HCL 50 MG/ML AMPUL IV STA (21:01)
[2024-02-29 06:14] LABS: HEMATOCRIT 34.1 % (39.0-48.0); HEMOGLOBIN 11.1 g/dL (13-16.00); MEAN CELL VOLUME 75.2 fL (80.0-100.00); MEAN CORPUSCULAR HEMOGLOBIN 24.5 pg (27.00-32.0); MEAN CORPUSCULAR HGB CONC 32.5 g/dl (32.0-36.0); PLATELET COUNT 349 K/uL (150-450); RED BLOOD COUNT 4.53 M/uL (4.00-6.00); RED CELL DISTRIBUTION WIDTH 22.2 % (11.5-14.5)
[2024-02-29 06:23] LABS: ERYTHROCYTE SEDIMENTATION RATE 11 mm/hr
[2024-02-29 06:29] LABS: INR 1.68; PARTIAL THROMBOPLASTIN TIME 28.5 SECONDS (22.0-34.0)
[2024-02-29 06:30] LABS: ALBUMIN 3.4 gm/dL (3.4-5.0); BILIRUBIN TOTAL 1.91 mg/dL (0.3-1.2); BILIRUBIN,CONJUGATED 0.9 mg/dL (0.0-0.2); BILIRUBIN,UNCONJUGATED 1.01 mg/dL (0.0-0.6); CALCIUM 9.4 mg/dL (8.5-10.1); CREATININE SERUM 2.91 mg/dL (0.70-1.30); POTASSIUM 4.77 mEq/L (3.5-5.1); TOTAL PROTEIN 7.4 gm/dL (6.4-8.2)
[2024-02-29 06:34] LABS: C-REACTIVE PROTEIN 2.08 MG/DL (0.00-0.29)
[2024-02-29 08:36] LABS: URINE APPEARANCE Cloudy; URINE BILIRRUBIN Negative (NEGATIVE); URINE BLOOD Large; URINE COLOR Dark Yellow; URINE GLUCOSE Negative (NEGATIVE); URINE LEUKOCYTE Trace; URINE NITRATE Negative; URINE PROTEIN 30 (NEGATIVE)
[2024-02-29 08:40] LABS: URINE BACTERIA 308.6 uL (0.0-1933); URINE EPITHELIAL CELLS 14.6 uL (0.0-38.8); URINE RBC 862.3 uL (0.0-20.8); URINE WBC 18.5 uL (0.0-23.2)
[2024-02-29 08:59] LABS: URINE CRYSTALS MODERATE /HPF
[2024-02-29] MEDS ORDERED: CARVEDILOL 12.5 MG TABLET PO SCH (09:00)
[2024-02-29] MEDS ORDERED: SPIRONOLACTONE 25 MG TABLET PO SCH (09:00)
[2024-02-29] MEDS ORDERED: Cyanocobalamin/Mecobalamin 1 TAB.SL SL SCH (09:00)
[2024-02-29] MEDS ORDERED: APIXABAN 5 MG TABLET PO SCH (09:00)
[2024-02-29] MEDS ORDERED: PATIENTS OWN MEDICATION (MEDICAMENTO EN PISO) PO SCH (09:00)
[2024-02-29 20:00] LABS: ABG PH 7.458 (7.35-7.45); ABG PO2 90.3 mmHg (80-100); ABG pCO2 33.9 mmHg (35-45); BASE EXCESS 0.3 mmol/l; BICARBONATE 23.4 mmol/l (23-25); SaO2 97.4 %; Tco2 24.5 mmol/l; allen test SATISFACTORY; o2 21 %; puncture site RADIAL LEFT
[2024-03-01] MEDS ORDERED: AMIODARONE HCL 200 MG TABLET PO SCH (09:00)
[2024-03-02 07:51] LABS: HEMATOCRIT 33.3 % (39.0-48.0); HEMOGLOBIN 10.8 g/dL (13-16.00); MEAN CORPUSCULAR HEMOGLOBIN 24.3 pg (27.00-32.0); MEAN CORPUSCULAR HGB CONC 32.4 g/dl (32.0-36.0); PLATELET COUNT 285 K/uL (150-450); RED BLOOD COUNT 4.44 M/uL (4.00-6.00); RED CELL DISTRIBUTION WIDTH 22.8 % (11.5-14.5)
[2024-03-02 08:30] LABS: INR 1.28; PARTIAL THROMBOPLASTIN TIME 27.9 SECONDS (22.0-34.0); PROTHROMBIN TIME 13.2 SECONDS (9.0-11.5)
[2024-03-03 18:58] LABS: TP PLEURAL FLUID 3.7 g/dl
[2024-03-03 19:38] LABS: PLEURAL FLUID COLOR YELLOW
[2024-03-03 19:39] LABS: MONONUCLEAR 70 %; PLEURAL FLUID APPEARANCE HAZY; POLYMORPHONUCLEAR 30 %
[2024-03-04] MEDS ORDERED: BUMETANIDE 1 MG TABLET PO SCH (17:00)
[2024-03-04] MEDS ORDERED: FAMOtidine 20 MG TABLET PO SCH (21:00)
[2024-03-05] MEDS ORDERED: FAMOtidine 20 MG TABLET PO SCH (09:00)
[2024-03-05] MEDS ORDERED: ELIQUIS5 MG PO ×2 (10:35)
[2024-03-05] MEDS ORDERED: SPIRONOLACTONE25 MG PO (10:36)
[2024-03-05] MEDS ORDERED: AMIODARONE HCL200 MG PO ×2 (10:36→10:39)
[2024-03-05] MEDS ORDERED: CLONAZEPAM0.5 MG PO (10:37)
[2024-03-05] MEDS ORDERED: CARVEDILOL12.5 MG PO (10:37)
[2024-03-05] MEDS ORDERED: BUMETANIDE1 MG PO (10:37)
[2024-03-05] MEDS ORDERED: FARXIGA5 MG PO (10:38)
[2024-03-05] MEDS ORDERED: Neurin-Sl Tablet Sl SL (10:38)
[2024-03-05] MEDS ORDERED: PANTOPRAZOLE SO40 MG PO (10:38)
[2024-03-05] MEDS ORDERED: VITAMIN D3125 MC2 PO (10:38)
[2024-03-05] MEDS ORDERED: PROTEINEX LIQU473 ML PO (10:38)
[2024-03-05] MEDS ORDERED: ZAROXOLYN5 MG PO (10:40)
== END 2024-03-05 13:08 | disposition home or self-care (01) | DRG 178 ==
LOC: ER 23:58 → SEC-K 02-28 17:46 → MEDI 02-28 18:15 → SEC-K 02-28 23:11 → MEDJ 02-29 17:32
PROVIDERS: General Practice; Internal Medicine; Radiology Vascular & Interventional Radiology; ADMIT Internal Medicine; ATTEND Internal Medicine
PROC: BW24ZZZ Computerized Tomography (CT Scan) of Chest and Abdomen (ICD-10-PCS; 2024-02-29)
PROC: 4A12X4Z Monitoring of Cardiac Electrical Activity, External Approach (ICD-10-PCS; 2024-02-29)
PROC: 0W993ZX Drainage of Right Pleural Cavity, Percutaneous Approach, Diagnostic (ICD-10-PCS; principal; 2024-03-03)
DX: U07.1 COVID-19 (principal); J90 Pleural effusion, not elsewhere classified; N17.9 Acute kidney failure, unspecified; I50.9 Heart failure, unspecified; R09.02 Hypoxemia; Z95.810 Presence of automatic (implantable) cardiac defibrillator

== ENCOUNTER 2024-03-14 07:49 | Emergency (ER) | payer OTHER ==
[~2024-03-14] VITALS: Ht 175.3 cm; Wt 91.6 kg
[~2024-03-14 07:49] MED LIST changes: +BUMETANIDE1 MG PO; +CARVEDILOL12.5 MG PO; +ZAROXOLYN5 MG PO
[2024-03-14] MEDS ORDERED: PROTONIX20 MG (08:13)
[2024-03-14] MEDS ORDERED: METOLAZONE5 MG PO (08:14)
[2024-03-14] MEDS ORDERED: ABANEU-SL TABL1 EACH (08:15)
[2024-03-14] MEDS ORDERED: 0.9 % SODIUM CHLORIDE 1,000 ML IV SCH (10:15)
[2024-03-14 10:36] LABS: ABG PH 7.452 (7.35-7.45); ABG PO2 112.3 mmHg (80-100); ABG pCO2 39.3 mmHg (35-45); BASE EXCESS 2.8 mmol/l; BICARBONATE 26.8 mmol/l (23-25); SaO2 98.6 %
[2024-03-14 10:41] LABS: HEMATOCRIT 34.6 % (39.0-48.0); HEMOGLOBIN 11.2 g/dL (13-16.00); MEAN CELL VOLUME 74.8 fL (80.0-100.00); MEAN CORPUSCULAR HEMOGLOBIN 24.2 pg (27.00-32.0); MEAN CORPUSCULAR HGB CONC 32.4 g/dl (32.0-36.0); PLATELET COUNT 256 K/uL (150-450); RED BLOOD COUNT 4.62 M/uL (4.00-6.00); RED CELL DISTRIBUTION WIDTH 22.6 % (11.5-14.5)
[2024-03-14 10:56] LABS: allen test SATISFACTORY; o2 28 %; puncture site RADIAL RIGHT
[2024-03-14 11:05] LABS: INR 1.27; PARTIAL THROMBOPLASTIN TIME 31.4 SECONDS (22.0-34.0); PROTHROMBIN TIME 13.1 SECONDS (9.0-11.5)
[2024-03-14 11:08] LABS: PH,URINE 6.5 (5.0-8.0); URINE APPEARANCE Clear; URINE BILIRRUBIN Negative (NEGATIVE); URINE BLOOD Negative; URINE COLOR Yellow; URINE GLUCOSE Negative (NEGATIVE); URINE LEUKOCYTE Negative; URINE NITRATE Negative; URINE PROTEIN Negative (NEGATIVE)
[2024-03-14 11:10] LABS: ALBUMIN 3.2 gm/dL (3.4-5.0); BILIRUBIN TOTAL 1.29 mg/dL (0.3-1.2); CALCIUM 8.9 mg/dL (8.5-10.1); CREATININE SERUM 1.86 mg/dL (0.70-1.30); GFR 36.88; GLOBULINA 4.2 G/DL (2.4-3.5); POTASSIUM 4.72 mEq/L (3.5-5.1); TOTAL PROTEIN 7.4 gm/dL (6.4-8.2)
[2024-03-14 11:12] LABS: URINE RBC 2.7 uL (0.0-20.8); URINE WBC 1.8 uL (0.0-23.2)
[2024-03-14 11:19] LABS: URINE BACTERIA 2.5 uL (0.0-1933)
[2024-03-14 12:38] LABS: ERYTHROCYTE SEDIMENTATION RATE 29 mm/hr
[2024-03-15] MEDS ORDERED: 0.9 % SODIUM CHLORIDE 1,000 ML IV SCH (09:00)
== END 2024-03-14 13:52 | disposition home or self-care (01) ==
LOC: ER 07:49
PROVIDERS: General Practice
DX: R42 Dizziness and giddiness (principal); Z20.822 Contact with and (suspected) exposure to COVID-19; I10 Essential (primary) hypertension; Z91.040 Latex allergy status

== ENCOUNTER 2024-10-08 09:50 | Outpatient (CLI) | payer OTHER ==
[~2024-10-08 09:50] MED LIST changes: +ABANEU-SL TABL1 EACH; +METOLAZONE5 MG PO; +PROTONIX20 MG
== END 2024-10-08 09:59 | disposition home or self-care (01) ==
LOC: SONOGRAMA 09:50
PROVIDERS: ATTEND General Practice
DX: M25.511 Pain in right shoulder (principal); M15.9 Polyosteoarthritis, unspecified; M75.101 Unspecified rotator cuff tear or rupture of right shoulder, not specified as traumatic

== ENCOUNTER 2024-10-12 07:41 | Outpatient (CLI) | payer OTHER | END 2024-10-12 07:42 | disposition home or self-care (01) | LOC: NUCLEAR 07:41 | PROVIDERS: ATTEND Internal Medicine Hematology & Oncology | DX: C64.1 Malignant neoplasm of right kidney, except renal pelvis (principal) | CPT/HCPCS: 78816; A9552 ==

== ENCOUNTER 2025-06-30 09:03 | Outpatient (CLI) | payer OTHER | END 2025-06-30 09:07 | disposition home or self-care (01) | LOC: SONOGRAMA 09:03 | PROVIDERS: ATTEND Internal Medicine | DX: N18.30 Chronic kidney disease, stage 3 unspecified (principal) ==